=== PATIENT | female | born 1990 | race Caucasian/White ===

== ENCOUNTER 2019-05-15 00:19 | Observation (INO) | END 2019-05-15 02:06 | disposition home or self-care (01) | LOC: 1NENULAB | PROVIDERS: ADMIT Advanced Practice Midwife; ATTEND Advanced Practice Midwife ==

== ENCOUNTER 2019-05-19 19:15 | Inpatient (IN) ==
[2019-05-19 19:59] LABS: Bilirubin,Urine Negative (Negative); Blood,Urine Negative (Negative); Clarity,Urine Cloudy (Clear); Color,Urine Dark Yellow (Yellow); Glucose,Urine (UA) Normal (Normal); Ketones,Urine Negative (Negative); Leukocyte Esterase,Urine Small (Negative); Nitrite,Urine Negative (Negative); Protein,Urine Trace mg/dL (Neg-Trace)
[2019-05-19 20:01] LABS: Bacteria,Urine Moderate per hpf (None-Few); Hyaline Casts,Urine Few per lpf (None-Few); Squamous Epithelial Cell,Urine Many per lpf (None-Few); WBC,Urine 15-30 per hpf (0-3)
[2019-05-19 20:15] LABS: Calcium Oxalate Crystals,Urine Present
[2019-05-19 20:16] LABS: RBC,Urine 0-3 per hpf (0-3)
[2019-05-19 20:24] LABS: Amphetamine Screen,Urine Positive ng/mL (Cutoff=1000); Barbiturate Screen,Urine Negative ng/mL (Cutoff=200); Benzodiazepines Screen,Urine Negative ng/mL (Cutoff=200); Cannabinoid Screen,Urine Positive ng/mL (Cutoff = 50); Cocaine Screen,Urine Negative ng/mL (Cutoff= 300); Opiate Screen,Urine Negative ng/mL (Cutoff=300); Phencyclidine Screen,Urine Negative ng/mL (Cutoff=25)
[2019-05-19] MEDS ORDERED: Albuterol 2.5 MG/3 ML NEBULIZER IH ONE (20:37)
[2019-05-19] MEDS ORDERED: Albuterol 2.5 MG/3 ML NEBULIZER ONE (21:14)
[2019-05-19 21:35] LABS: Basophils % 0.2 %; Eosinophils # 0.2 K/mcL (0.0-0.6); Eosinophils % 1.4 %; Hematocrit 34.3 % (35.3-44.9); Hemoglobin 11.7 g/dL (11.5-15.4); Immature Granulocytes % 0.8 % (0-4); Lymphocytes # 2.5 K/mcL (0.6-4.6); Lymphocytes % 22.6 %; Mean Corpuscular HGB Conc 34.1 g/dL (31.6-35.5); Mean Corpuscular Hemoglobin 28.4 pg (28.0-33.3); Mean Corpuscular Volume 83.3 fL (83.0-100.0); Mean Platelet Volume 10.5 fL (9.4-12.4); Monocytes # 0.6 K/mcL (0.0-1.3); Monocytes % 5.3 %; Neutrophils # 7.6 K/mcL (1.6-8.9); Platelet Count 273 K/mcL (140-400); Red Blood Count 4.12 M/mcL (3.82-4.97); Red Cell Distribution Width 15.1 % (11.5-14.5); Segmented Neutrophils % 69.7 %
[2019-05-19 21:49] LABS: Candida DNA Not Detected (Not Detect); Gardnerella DNA Not Detected (Not Detect); Trichomonas DNA Not Detected (Not Detect)
[2019-05-19 21:53] LABS: Alanine Aminotransferase 17 Units/L (7-52); Albumin 3.3 g/dL (3.5-5.7); Albumin/Globulin Ratio 1.1 (1.1-2.2); Alkaline Phosphatase 111 Units/L (34-104); Aspartate Amino Transferase 17 Units/L (13-39); BUN/Creatinine Ratio 22 (6-26); Bilirubin,Total 0.5 mg/dL (0.3-1.0); Blood Urea Nitrogen 11 mg/dL (6-20); Calcium 8.9 mg/dL (8.6-10.3); Carbon Dioxide 21 mEq/L (23-29); Chloride 105 mEq/L (98-107); Globulin 3.1 g/dL (2.4-3.5); Glucose 83 mg/dL (70-105); Osmolality,Calculated 281 (280-300); Potassium 3.6 mEq/L (3.5-5.1); Sodium 136 mEq/L (136-145); Total Protein 6.4 g/dL (6.4-8.9); eGFR For African Americans > 60 (> 60); eGFR For Non-African Americans > 60 (> 60)
[2019-05-20] MEDS ORDERED: Ringers Solution, Lactated 1,000 ML ONE (06:18)
[2019-05-20] MEDS ORDERED: Famotidine 20 MG/2 ML VIAL IVP PRN (06:22)
[2019-05-20] MEDS ORDERED: Metoclopramide 10 MG/2 ML VIAL IVP PRN ×2 (06:22→13:47)
[2019-05-20] MEDS ORDERED: Naloxone 0.4 MG/ML INJ IVP PRN (06:22)
[2019-05-20] MEDS ORDERED: Ringers Solution, Lactated 1,000 ML IVC SCH (06:30)
[2019-05-20] MEDS ORDERED: Betamethasone Acet/SodPhos 30 MG/5 ML VIAL IM SCH (07:15)
[2019-05-20] MEDS ORDERED: Clindamycin 900 MG/50 ML 900 MG/50 ML IV.SOLN IVPB ONE (09:02)
[2019-05-20] MEDS ORDERED: Oxytocin 20 units/ LR 1000 mL 20 UNIT/1,000 ML BAG IVC ONE (09:15)
[2019-05-20] MEDS ORDERED: *HR* Morphine Sulfate/PF 10 MG/10 ML AMPUL ONE (09:54)
[2019-05-20] MEDS ORDERED: *HR* FentaNYL (PF) 100 MCG/2 ML VIAL ONE (09:54)
[2019-05-20] MEDS ORDERED: Gentamicin 350 MG in 0.9 % Sodium Chloride 100 ML IVPB ONE (10:00)
[2019-05-20] MEDS ORDERED: Acetaminophen IV 1,000 MG/100 ML INFUS..BTL IVPB ONE (10:04)
[2019-05-20] MEDS ORDERED: Dexamethasone 4 MG/ML VIAL ONE (10:25)
[2019-05-20] MEDS ORDERED: Ondansetron 4 MG/2 ML VIAL ONE ×2 (10:25)
[2019-05-20] MEDS ORDERED: *HR* OxyCODONE Immed Rel 5 MG TABLET PO PRN (10:41)
[2019-05-20] MEDS ORDERED: Ondansetron 4 MG/2 ML VIAL IVP ONE (10:41)
[2019-05-20] MEDS ORDERED: *HR* HYDROmorphone (PF) 1 MG/ML SYRINGE IVP PRN (10:41)
[2019-05-20] MEDS ORDERED: Rho Immune Globulin 1,500 UNIT SYRINGE IM ONE (13:47)
[2019-05-20] MEDS ORDERED: Oxytocin 20 units/ LR 1000 mL 20 UNIT/1,000 ML BAG IVC SCH ×2 (13:47)
[2019-05-20] MEDS ORDERED: Ondansetron 4 MG/2 ML VIAL IVP PRN (13:47)
[2019-05-20] MEDS ORDERED: Measles/Mumps/Rubella Vacc 0.5 ML VIAL SQ ONE (13:47)
[2019-05-20] MEDS ORDERED: *HR* LORazepam 2 MG/ML VIAL IVP ONE (15:58)
[2019-05-20] MEDS ORDERED: *HR* LORazepam 2 MG/ML VIAL ONE (16:00)
[2019-05-20] MEDS: Clindamycin 900 MG/50 ML 900 MG/50 ML IV.SOLN IVPB SCH ×2 (16:35→23:35)
[2019-05-20] MEDS: Nicotine 21 MG PATCH.TD24 TD SCH (17:11)
[2019-05-20] MEDS: Acetaminophen 325 MG TABLET PO SCH ×2 (17:39→23:35)
[2019-05-20] MEDS: Gentamicin 100 MG in 0.9 % Sodium Chloride 100 ML IVPB SCH (18:10)
[2019-05-20] MEDS: Simethicone 80 MG TAB.CHEW PO PRN (21:15)
[2019-05-20] MEDS: *HR* OxyCODONE Immed Rel 5 MG TABLET PO PRN (21:15)
[2019-05-21] MEDS: Gentamicin 100 MG in 0.9 % Sodium Chloride 100 ML IVPB SCH ×3 (02:11→17:54)
[2019-05-21] MEDS: *HR* OxyCODONE Immed Rel 5 MG TABLET PO PRN ×4 (03:56→17:57)
[2019-05-21 04:42] LABS: Basophils % 0.2 %; Eosinophils # 0.1 K/mcL (0.0-0.6); Eosinophils % 1.1 %; Hematocrit 33.8 % (35.3-44.9); Immature Granulocytes % 0.8 % (0-4); Lymphocytes # 2.9 K/mcL (0.6-4.6); Lymphocytes % 22.7 %; Mean Corpuscular HGB Conc 32.5 g/dL (31.6-35.5); Mean Corpuscular Hemoglobin 28.2 pg (28.0-33.3); Mean Corpuscular Volume 86.7 fL (83.0-100.0); Mean Platelet Volume 10.4 fL (9.4-12.4); Monocytes # 0.9 K/mcL (0.0-1.3); Monocytes % 6.8 %; Neutrophils # 8.6 K/mcL (1.6-8.9); Platelet Count 245 K/mcL (140-400); Red Cell Distribution Width 15.5 % (11.5-14.5); Segmented Neutrophils % 68.4 %; White Blood Count 12.6 K/mcL (4.3-11.1)
[2019-05-21] MEDS: Acetaminophen 325 MG TABLET PO SCH ×3 (06:40→18:38)
[2019-05-21] MEDS: Nicotine 21 MG PATCH.TD24 TD SCH (08:04)
[2019-05-21] MEDS: Clindamycin 900 MG/50 ML 900 MG/50 ML IV.SOLN IVPB SCH (08:05)
[2019-05-21] MEDS ORDERED: Prenatal Vit/FA 1 EACH TABLET PO SCH (09:00)
[2019-05-21] MEDS: Simethicone 80 MG TAB.CHEW PO PRN (21:41)
[2019-05-21] MEDS: Sulfamethoxazole/Trimeth DS 1 EACH TABLET PO SCH (21:42)
[2019-05-22] MEDS: *HR* OxyCODONE Immed Rel 5 MG TABLET PO PRN ×2 (02:08→09:23)
[2019-05-22] MEDS: Acetaminophen 325 MG TABLET PO SCH ×2 (02:09→09:22)
[2019-05-22] MEDS: Sulfamethoxazole/Trimeth DS 1 EACH TABLET PO SCH (09:23)
[2019-05-22 09:24] VITALS: BP 134/89
== END 2019-05-22 10:55 | disposition home or self-care (01) | DRG 539 ==
LOC: 1NENULAB → 1NENUOBS 05-20 13:43
PROVIDERS: ADMIT Registered Nurse; ATTEND Registered Nurse

== ENCOUNTER 2019-06-02 12:34 | Inpatient (IN) ==
[2019-06-02] MEDS ORDERED: ISOVUE-370 200 ML INFUS..BTL ONE (12:41)
[2019-06-02] MEDS ORDERED: 0.9 % Sodium Chloride 1,000 ML ONE (12:41)
[2019-06-02] MEDS ORDERED: *HR* Heparin 10,000 UNIT/10 ML VIAL ONE (12:41)
[2019-06-02] MEDS ORDERED: Heparin 1,000 UNITS/500 mL 500 ML ONE (12:41)
[2019-06-02] MEDS ORDERED: Nitroglycerin 1,000 MCG/10 ML VIAL IV ONE (12:42)
[2019-06-02] MEDS ORDERED: *HR* Midazolam HCl 2 MG/2 ML VIAL ONE (12:47)
[2019-06-02] MEDS ORDERED: *HR* Bivalirudin 250 MG VIAL IVC ONE (12:47)
[2019-06-02] MEDS ORDERED: *HR* FentaNYL (PF) 100 MCG/2 ML VIAL ONE (12:48)
[2019-06-02] MEDS ORDERED: Tirofiban 12.5 MG/250ML 12.5 MG/250 ML BAG ONE (13:29)
[2019-06-02] MEDS ORDERED: Nitroglycerin 0.4 MG TAB.SUBL SL PRN (14:29)
[2019-06-02] MEDS ORDERED: *HR* Atropine Sulfate 1 MG/10 ML SYRINGE ONE (16:45)
[2019-06-02] MEDS: carvediloL 6.25 MG TABLET PO SCH (17:34)
[2019-06-02 19:07] LABS: Amphetamine Screen,Urine Positive ng/mL (Cutoff=1000); Barbiturate Screen,Urine Negative ng/mL (Cutoff=200); Benzodiazepines Screen,Urine Negative ng/mL (Cutoff=200); Cannabinoid Screen,Urine Positive ng/mL (Cutoff = 50); Cocaine Screen,Urine Negative ng/mL (Cutoff= 300); Opiate Screen,Urine Negative ng/mL (Cutoff=300); Phencyclidine Screen,Urine Negative ng/mL (Cutoff=25)
[2019-06-02 19:56] LABS: BUN/Creatinine Ratio 24 (6-26); Blood Urea Nitrogen 15 mg/dL (6-20); Calcium 9.1 mg/dL (8.6-10.3); Carbon Dioxide 23 mEq/L (23-29); Chloride 105 mEq/L (98-107); Glucose 127 mg/dL (70-105); Magnesium 2.1 mg/dL (1.6-2.6); Osmolality,Calculated 288 (280-300); Potassium 3.8 mEq/L (3.5-5.1); Sodium 138 mEq/L (136-145); eGFR For African Americans > 60 (> 60); eGFR For Non-African Americans > 60 (> 60)
[2019-06-02 20:01] LABS: Troponin I 26.01 ng/mL (< 0.04)
[2019-06-03 08:25] LABS: Basophils % 0.3 %; Eosinophils # 0.1 K/mcL (0.0-0.6); Eosinophils % 1.3 %; Hematocrit 37.4 % (35.3-44.9); Hemoglobin 12.4 g/dL (11.5-15.4); Immature Granulocytes % 0.4 % (0-4); Mean Corpuscular HGB Conc 33.2 g/dL (31.6-35.5); Mean Corpuscular Hemoglobin 27.6 pg (28.0-33.3); Mean Corpuscular Volume 83.3 fL (83.0-100.0); Mean Platelet Volume 9.7 fL (9.4-12.4); Monocytes # 0.6 K/mcL (0.0-1.3); Monocytes % 5.5 %; Neutrophils # 7.6 K/mcL (1.6-8.9); Platelet Count 384 K/mcL (140-400); Red Blood Count 4.49 M/mcL (3.82-4.97); Red Cell Distribution Width 15.4 % (11.5-14.5); Segmented Neutrophils % 73.5 %; White Blood Count 10.4 K/mcL (4.3-11.1)
[2019-06-03 08:28] LABS: INR 1.1; Prothrombin Time 12.3 Seconds (9.4-12.1)
[2019-06-03 08:48] LABS: BUN/Creatinine Ratio 18 (6-26); Blood Urea Nitrogen 12 mg/dL (6-20); Carbon Dioxide 25 mEq/L (23-29); Chloride 104 mEq/L (98-107); Cholesterol 188 mg/dL (< 200); Estimated Average Glucose 111 mg/dl; Glucose 152 mg/dL (70-105); HDL Cholesterol 62 mg/dL (40-59); LDL Cholesterol,Calculated 100 mg/dL (0-99); Osmolality,Calculated 291 (280-300); Potassium 3.4 mEq/L (3.5-5.1); Sodium 139 mEq/L (136-145); Triglycerides 129 mg/dL (< 150); Troponin I 50.52 ng/mL (< 0.04); eGFR For African Americans > 60 (> 60); eGFR For Non-African Americans > 60 (> 60)
[2019-06-03] MEDS ORDERED: Perflutren Lipid Microsphere 1.3 ML in 0.9 % Sodium Chloride 8.7 ML IVP ONE (09:13)
[2019-06-03] MEDS: carvediloL 6.25 MG TABLET PO SCH ×2 (09:25→18:06)
[2019-06-03] MEDS: Nicotine 14 MG PATCH.TD24 TD SCH (09:27)
[2019-06-03] MEDS: *HR* Heparin 5,000 UNIT/ML VIAL SQ SCH (18:06)
[2019-06-04] MEDS: *HR* Heparin 5,000 UNIT/ML VIAL SQ SCH (05:04)
[2019-06-04] MEDS: Nicotine 14 MG PATCH.TD24 TD SCH (09:04)
[2019-06-04] MEDS: carvediloL 6.25 MG TABLET PO SCH (09:04)
[2019-06-04 11:21] LABS: Basophils % 0.5 %; Eosinophils # 0.1 K/mcL (0.0-0.6); Eosinophils % 1.3 %; Hematocrit 35.3 % (35.3-44.9); Hemoglobin 11.5 g/dL (11.5-15.4); Immature Granulocytes % 0.8 % (0-4); Lymphocytes # 2.4 K/mcL (0.6-4.6); Lymphocytes % 30.4 %; Mean Corpuscular HGB Conc 32.6 g/dL (31.6-35.5); Mean Corpuscular Hemoglobin 27.5 pg (28.0-33.3); Mean Corpuscular Volume 84.4 fL (83.0-100.0); Mean Platelet Volume 9.9 fL (9.4-12.4); Monocytes # 0.6 K/mcL (0.0-1.3); Monocytes % 7.1 %; Neutrophils # 4.7 K/mcL (1.6-8.9); Platelet Count 309 K/mcL (140-400); Red Blood Count 4.18 M/mcL (3.82-4.97); Red Cell Distribution Width 15.5 % (11.5-14.5); Segmented Neutrophils % 59.9 %; White Blood Count 7.8 K/mcL (4.3-11.1)
[2019-06-04 11:33] LABS: BUN/Creatinine Ratio 12 (6-26); Blood Urea Nitrogen 8 mg/dL (6-20); Calcium 8.7 mg/dL (8.6-10.3); Carbon Dioxide 25 mEq/L (23-29); Chloride 106 mEq/L (98-107); Glucose 99 mg/dL (70-105); Magnesium 1.8 mg/dL (1.6-2.6); Osmolality,Calculated 288 (280-300); Potassium 4.1 mEq/L (3.5-5.1); Sodium 140 mEq/L (136-145); eGFR For African Americans > 60 (> 60); eGFR For Non-African Americans > 60 (> 60)
[2019-06-04 16:40] VITALS: BP 103/67
== END 2019-06-04 17:25 | disposition home or self-care (01) | DRG 174 ==
LOC: ICNU 14:20
PROVIDERS: ADMIT Internal Medicine Interventional Cardiology; ATTEND Internal Medicine Interventional Cardiology

== ENCOUNTER 2019-06-15 23:13 | Inpatient (IN) ==
[2019-06-15] MEDS ORDERED: *HR* Ticagrelor 90 MG TABLET PO ONE (23:25)
[2019-06-15] MEDS ORDERED: *HR* Heparin 5,000 UNIT/ML VIAL IVP ONE (23:25)
[2019-06-15] MEDS ORDERED: *HR* Ticagrelor 90 MG TABLET ONE (23:27)
[2019-06-15] MEDS ORDERED: *HR* Heparin 5,000 UNIT/ML VIAL ONE (23:27)
[2019-06-15] MEDS ORDERED: 0.9 % Sodium Chloride 1,000 ML ONE (23:28)
[2019-06-15] MEDS ORDERED: 0.9 % Sodium Chloride 1,000 ML IVC ONE (23:30)
[2019-06-15] MEDS ORDERED: Heparin 1,000 UNITS/500 mL 500 ML ONE (23:35)
[2019-06-15] MEDS ORDERED: Nitroglycerin 1,000 MCG/10 ML VIAL IV ONE (23:35)
[2019-06-15] MEDS ORDERED: 0.9 % Sodium Chloride 2,000 ML ONE (23:35)
[2019-06-15] MEDS ORDERED: *HR* Heparin 10,000 UNIT/10 ML VIAL ONE (23:35)
[2019-06-15] MEDS ORDERED: ISOVUE-370 200 ML INFUS..BTL ONE (23:35)
[2019-06-15 23:48] LABS: Basophils % 0.3 %; Eosinophils # 0.2 K/mcL (0.0-0.6); Eosinophils % 1.5 %; Hematocrit 35.3 % (35.3-44.9); Hemoglobin 11.7 g/dL (11.5-15.4); Immature Granulocytes % 0.3 % (0-4); Lymphocytes # 2.3 K/mcL (0.6-4.6); Mean Corpuscular HGB Conc 33.1 g/dL (31.6-35.5); Mean Corpuscular Hemoglobin 27.8 pg (28.0-33.3); Mean Corpuscular Volume 83.8 fL (83.0-100.0); Mean Platelet Volume 9.5 fL (9.4-12.4); Monocytes # 0.6 K/mcL (0.0-1.3); Monocytes % 6.1 %; Platelet Count 357 K/mcL (140-400); Red Blood Count 4.21 M/mcL (3.82-4.97); Red Cell Distribution Width 15.6 % (11.5-14.5); Segmented Neutrophils % 68.8 %; White Blood Count 10.2 K/mcL (4.3-11.1)
[2019-06-15] MEDS ORDERED: Verapamil 5 MG/2 ML VIAL ONE (23:51)
[2019-06-15 23:52] LABS: INR 1.1; Prothrombin Time 12.8 Seconds (9.4-12.1)
[2019-06-16] MEDS ORDERED: *HR* FentaNYL (PF) 100 MCG/2 ML VIAL ONE (00:05)
[2019-06-16] MEDS ORDERED: *HR* Midazolam HCl 2 MG/2 ML VIAL ONE (00:05)
[2019-06-16 00:09] LABS: BUN/Creatinine Ratio 23 (6-26); Blood Urea Nitrogen 18 mg/dL (6-20); Carbon Dioxide 19 mEq/L (23-29); Chloride 106 mEq/L (98-107); Glucose 131 mg/dL (70-105); Magnesium 2.1 mg/dL (1.6-2.6); Osmolality,Calculated 290 (280-300); Potassium 3.6 mEq/L (3.5-5.1); Sodium 138 mEq/L (136-145); eGFR For African Americans > 60 (> 60); eGFR For Non-African Americans > 60 (> 60)
[2019-06-16 00:11] LABS: Activated Partial Thrombo Time > 360.0 Seconds (26.0-36.0)
[2019-06-16] MEDS ORDERED: *HR* Heparin 10,000 UNIT/10 ML VIAL ONE (00:13)
[2019-06-16 00:14] LABS: Troponin I 0.17 ng/mL (< 0.04)
[2019-06-16] MEDS ORDERED: Tirofiban 12.5 MG/250ML 12.5 MG/250 ML BAG ONE (00:21)
[2019-06-16] MEDS ORDERED: Ondansetron 4 MG/2 ML VIAL IVP PRN (01:09)
[2019-06-16] MEDS ORDERED: Tirofiban 12.5 MG/250ML 12.5 MG/250 ML BAG IVC SCH (01:15)
[2019-06-16] MEDS: 0.9 % Sodium Chloride 1,000 ML IVC SCH ×3 (02:11→20:30)
[2019-06-16 03:14] LABS: Basophils % 0.3 %; Eosinophils % 0.4 %; Hematocrit 33.4 % (35.3-44.9); Hemoglobin 10.6 g/dL (11.5-15.4); Immature Granulocytes % 0.3 % (0-4); Lymphocytes % 9.5 %; Mean Corpuscular HGB Conc 31.7 g/dL (31.6-35.5); Mean Corpuscular Volume 88.1 fL (83.0-100.0); Mean Platelet Volume 9.8 fL (9.4-12.4); Monocytes # 0.3 K/mcL (0.0-1.3); Monocytes % 2.7 %; Neutrophils # 9.3 K/mcL (1.6-8.9); Platelet Count 296 K/mcL (140-400); Red Blood Count 3.79 M/mcL (3.82-4.97); Red Cell Distribution Width 15.6 % (11.5-14.5); Segmented Neutrophils % 86.8 %; White Blood Count 10.7 K/mcL (4.3-11.1)
[2019-06-16 03:33] LABS: BUN/Creatinine Ratio 24 (6-26); Blood Urea Nitrogen 15 mg/dL (6-20); Calcium 8.3 mg/dL (8.6-10.3); Carbon Dioxide 20 mEq/L (23-29); Chloride 108 mEq/L (98-107); Glucose 119 mg/dL (70-105); Osmolality,Calculated 288 (280-300); Potassium 3.7 mEq/L (3.5-5.1); Sodium 138 mEq/L (136-145); eGFR For African Americans > 60 (> 60); eGFR For Non-African Americans > 60 (> 60)
[2019-06-16] MEDS ORDERED: *HR* Ticagrelor 90 MG TABLET PO ONE ×2 (05:30→10:44)
[2019-06-16 07:44] LABS: Hematocrit 32.8 % (35.3-44.9); Hemoglobin 10.4 g/dL (11.5-15.4)
[2019-06-16 07:58] LABS: % Iron Saturation 12 % (15-50); Iron 37 mcg/dL (50-170); Transferrin 214 mg/dL (203-362)
[2019-06-16 08:06] LABS: BUN/Creatinine Ratio 22 (6-26); Blood Urea Nitrogen 12 mg/dL (6-20); Troponin I 53.41 ng/mL (< 0.04); eGFR For African Americans > 60 (> 60); eGFR For Non-African Americans > 60 (> 60)
[2019-06-16] MEDS ORDERED: *HR* Ticagrelor 90 MG TABLET PO SCH (09:00)
[2019-06-16] MEDS ORDERED: Perflutren Lipid Microsphere 1.3 ML in 0.9 % Sodium Chloride 8.7 ML IVP ONE (10:56)
[2019-06-16 16:00] LABS: Bilirubin,Urine Negative (Negative); Blood,Urine Moderate (Negative); Clarity,Urine Clear (Clear); Color,Urine Yellow (Yellow); Glucose,Urine (UA) Normal (Normal); Ketones,Urine Trace mg/dL (Negative); Leukocyte Esterase,Urine Negative (Negative); Nitrite,Urine Negative (Negative); Protein,Urine Negative (Neg-Trace); Specific Gravity,Urine > 1.030 (1.010-1.025); Urobilinogen,Urine Normal (Normal)
[2019-06-16 16:06] LABS: Hyaline Casts,Urine None Seen per lpf (None-Few); RBC,Urine 0-3 per hpf (0-3); Squamous Epithelial Cell,Urine Many per lpf (None-Few)
[2019-06-16 16:24] LABS: Bacteria,Urine Few per hpf (None-Few)
[2019-06-16] MEDS: *HR* Ticagrelor 90 MG TABLET PO SCH (20:29)
[2019-06-17 04:39] LABS: Hematocrit 34.3 % (35.3-44.9); Hemoglobin 10.9 g/dL (11.5-15.4); Mean Corpuscular HGB Conc 31.8 g/dL (31.6-35.5); Mean Corpuscular Volume 88.2 fL (83.0-100.0); Mean Platelet Volume 9.8 fL (9.4-12.4); Platelet Count 299 K/mcL (140-400); Red Blood Count 3.89 M/mcL (3.82-4.97); Red Cell Distribution Width 16.1 % (11.5-14.5); White Blood Count 7.8 K/mcL (4.3-11.1)
[2019-06-17 04:53] LABS: BUN/Creatinine Ratio 10 (6-26); Blood Urea Nitrogen 7 mg/dL (6-20); Calcium 8.2 mg/dL (8.6-10.3); Carbon Dioxide 22 mEq/L (23-29); Chloride 109 mEq/L (98-107); Glucose 96 mg/dL (70-105); Osmolality,Calculated 288 (280-300); Potassium 3.6 mEq/L (3.5-5.1); Sodium 140 mEq/L (136-145); eGFR For African Americans > 60 (> 60); eGFR For Non-African Americans > 60 (> 60)
[2019-06-17] MEDS: 0.9 % Sodium Chloride 1,000 ML IVC SCH (06:46)
[2019-06-17] MEDS: *HR* Ticagrelor 90 MG TABLET PO SCH (07:48)
[2019-06-17 07:54] VITALS: BP 128/86
[2019-06-17 08:13] LABS: Estimated Average Glucose 111 mg/dl
[2019-06-17] MEDS ORDERED: D5% in Water 1,000 ML IVC SCH (08:15)
== END 2019-06-17 12:13 | disposition left against medical advice (07) | DRG 175 ==
LOC: ICNU 23:13 → EMEROOARM 23:13 → ICNU 06-16
PROVIDERS: ADMIT Internal Medicine; ATTEND Student in an Organized Health Care Education/Training Program

== ENCOUNTER 2019-09-10 18:48 | Inpatient (IN) ==
[2019-09-10] MEDS ORDERED: Ondansetron 4 MG/2 ML VIAL IVP PRN (21:27)
[2019-09-10] MEDS ORDERED: Naloxone 0.4 MG/ML INJ IVP PRN (21:27)
[2019-09-10] MEDS ORDERED: Acetaminophen 325 MG TABLET PO PRN (21:27)
[2019-09-10] MEDS ORDERED: Ipratropium/Albuterol Neb 3 ML IH PRN (21:33)
[2019-09-10] MEDS ORDERED: *HR* Heparin 5,000 UNIT/ML VIAL IVP ONE (21:56)
[2019-09-10] MEDS ORDERED: *HR* Heparin 5,000 UNIT/ML VIAL IVP PRN ×2 (21:56)
[2019-09-10 23:34] LABS: Heparin anti-factor XA UFH < 0.04 IU/mL (0.30-0.70)
[2019-09-10 23:35] LABS: Prothrombin Time 11.1 Seconds (9.4-12.1)
[2019-09-11] MEDS: Heparin 25,000 UNIT/250 ML D5W 25,000 UNIT/250 ML IV.SOLN IVC SCH ×2 (00:49→23:14)
[2019-09-11] MEDS: 0.9 % Sodium Chloride 1,000 ML IVC SCH ×2 (00:49→07:57)
[2019-09-11] MEDS ORDERED: Aspirin 81 MG TAB.CHEW PO SCH (09:00)
[2019-09-11] MEDS: lisinopriL 5 MG TABLET PO SCH (12:03)
[2019-09-11] MEDS: carvediloL 6.25 MG TABLET PO SCH ×2 (16:45→17:26)
[2019-09-11] MEDS ORDERED: *HR* LORazepam 2 MG/ML VIAL IVP PRN (17:19)
[2019-09-11] MEDS ORDERED: *HR* LORazepam 2 MG/ML VIAL IM PRN (17:52)
[2019-09-11] MEDS ORDERED: Melatonin 3 MG TABLET PO ONE (21:15)
[2019-09-11] MEDS: lamoTRIgine 25 MG TABLET PO SCH (23:10)
[2019-09-12] MEDS: lamoTRIgine 25 MG TABLET PO SCH ×2 (08:33→21:43)
[2019-09-12] MEDS: carvediloL 6.25 MG TABLET PO SCH ×2 (08:33→18:43)
[2019-09-12] MEDS: lisinopriL 5 MG TABLET PO SCH (08:33)
[2019-09-12] MEDS ORDERED: QUEtiapine Fumarate 100 MG TABLET PO SCH (21:00)
[2019-09-12] MEDS: Heparin 25,000 UNIT/250 ML D5W 25,000 UNIT/250 ML IV.SOLN IVC SCH (22:59)
[2019-09-13 07:53] VITALS: BP 121/71
[2019-09-13] MEDS: lisinopriL 5 MG TABLET PO SCH (08:20)
[2019-09-13] MEDS: carvediloL 6.25 MG TABLET PO SCH (08:20)
[2019-09-13] MEDS: lamoTRIgine 25 MG TABLET PO SCH (08:20)
== END 2019-09-13 15:33 | disposition left against medical advice (07) | DRG 190 ==
LOC: 2NENU → SUATTDRO 09-12 14:35 → 3BNU 09-12 21:24
PROVIDERS: ADMIT Internal Medicine; ATTEND Internal Medicine

== ENCOUNTER 2020-11-26 16:41 | Inpatient (IN) ==
[2020-11-26 17:32] LABS: Bacteria,Urine Few per hpf (None-Few); Bilirubin,Urine Negative (Negative); Blood,Urine Small (Negative); Clarity,Urine Turbid (Clear); Color,Urine Yellow (Yellow); Glucose,Urine (UA) Normal (Normal); Ketones,Urine Negative (Negative); Leukocyte Esterase,Urine Large (Negative); Mucus,Urine Many per lpf (None-Few); Nitrite,Urine Positive (Negative); PH,Urine 5.5 pH Units (5.0-8.0); Protein,Urine Trace mg/dL (Neg-Trace); Specific Gravity,Urine 1.025 (1.010-1.025); Squamous Epithelial Cell,Urine Few per hpf (None-Few); WBC,Urine TNTC per hpf (0-3)
[2020-11-26 17:34] LABS: Basophils # 0.1 K/mcL (0.0-0.2); Basophils % 0.4 %; Eosinophils # 0.2 K/mcL (0.0-0.6); Eosinophils % 1.5 %; Hematocrit 41.1 % (35.3-44.9); Hemoglobin 13.1 g/dL (11.5-15.4); Immature Granulocytes % 0.4 % (0-4); Lymphocytes # 1.8 K/mcL (0.6-4.6); Lymphocytes % 14.5 %; Mean Corpuscular HGB Conc 31.9 g/dL (31.6-35.5); Mean Corpuscular Hemoglobin 28.1 pg (28.0-33.3); Monocytes # 0.6 K/mcL (0.0-1.3); Neutrophils # 9.7 K/mcL (1.6-8.9); Platelet Count 264 K/mcL (140-400); Red Blood Count 4.67 M/mcL (3.82-4.97); Red Cell Distribution Width 14.6 % (11.5-14.5); Segmented Neutrophils % 78.2 %; White Blood Count 12.4 K/mcL (4.3-11.1)
[2020-11-26 18:02] LABS: Acetaminophen < 10 mcg/mL (10-20); BUN/Creatinine Ratio 17 (6-26); Blood Urea Nitrogen 12 mg/dL (6-20); Calcium 9.4 mg/dL (8.6-10.3); Carbon Dioxide 27 mEq/L (23-29); Chloride 108 mEq/L (98-107); Chol/HDL Ratio 2.8 (0-4.9); Cholesterol 130 mg/dL (< 200); Ethanol < 10 mg/dL (Less than 10); Glucose 94 mg/dL (70-105); HDL Cholesterol 46 mg/dL (40-59); LDL Cholesterol,Calculated 61 mg/dL (< 100); Osmolality,Calculated 298 (280-300); Potassium 4.3 mEq/L (3.5-5.1); Salicylate < 2.5 mg/dL (15.0-30.0); Sodium 144 mEq/L (136-145); Triglycerides 117 mg/dL (< 150); eGFR For African Americans > 60 (> 60); eGFR For Non-African Americans > 60 (> 60)
[2020-11-26 18:08] LABS: Amphetamine Screen,Urine Positive ng/mL (Cutoff=1000); Barbiturate Screen,Urine Negative ng/mL (Cutoff=200); Benzodiazepines Screen,Urine Negative ng/mL (Cutoff=200); Cannabinoid Screen,Urine Positive ng/mL (Cutoff = 50); Cocaine Screen,Urine Negative ng/mL (Cutoff= 300); Opiate Screen,Urine Negative ng/mL (Cutoff=300); Phencyclidine Screen,Urine Negative ng/mL (Cutoff=25)
[2020-11-26] MEDS ORDERED: Nitrofurantoin (BID) 100 MG CAPSULE PO STA (18:36)
[2020-11-26 18:49] LABS: Estimated Average Glucose 120 mg/dl; Hemoglobin A1C 5.8 %
[2020-11-26] MEDS ORDERED: Haloperidol Lactate 5 MG/ML VIAL IM ONE (19:34)
[2020-11-26 19:46] LABS: Adenovirus Not Detected (Not Detect); Bordetella Pertussis Not Detected (Not Detect); Chlamydophila pneumoniae Not Detected (Not Detect); Coronavirus 229E Not Detected (Not Detect); Coronavirus HKU1 Not Detected (Not Detect); Coronavirus NL63 Not Detected (Not Detect); Coronavirus OC43 Not Detected (Not Detect); Human Metapneumovirus Not Detected (Not Detect); Human Rhinovirus/Enterovirus Not Detected (Not Detect); Influenza A Subtype 2009 H1 Not Detected (Not Detect); Influenza B Not Detected (Not Detect); Mycoplasma pneumoniae Not Detected (Not Detect); Parainfluenza Virus 1 Not Detected (Not Detect); Parainfluenza Virus 2 Not Detected (Not Detect); Parainfluenza Virus 3 Not Detected (Not Detect); Parainfluenza Virus 4 Not Detected (Not Detect); Respiratory Syncytial Virus Not Detected (Not Detect); SARS-CoV-2 Not Detected (Not Detect)
[2020-11-27] MEDS ORDERED: *HR* LORazepam 2 MG/ML VIAL IM PRN (04:50)
[2020-11-27] MEDS ORDERED: traZODone 50 MG TABLET PO PRN (04:50)
[2020-11-27] MEDS ORDERED: Acetaminophen 325 MG TABLET PO PRN (04:50)
[2020-11-27] MEDS ORDERED: hydrOXYzine pamoate 25 MG CAPSULE PO PRN (04:50)
[2020-11-27] MEDS ORDERED: *HR* LORazepam 1 MG TABLET PO PRN (04:50)
[2020-11-27] MEDS ORDERED: Haloperidol Lactate 5 MG/ML VIAL IM PRN (04:50)
[2020-11-27] MEDS ORDERED: haloperidoL 5 MG TABLET PO PRN (04:50)
[2020-11-27] MEDS ORDERED: Mag Hydrox/Al Hydrox/Simeth 30 ML UDC PO PRN (16:34)
[2020-11-27] MEDS ORDERED: MOM Conc 10 ML UD.LIQ PO PRN (16:34)
[2020-11-27] MEDS: carvediloL 6.25 MG TABLET PO SCH (18:01)
[2020-11-27] MEDS: Nitrofurantoin (BID) 100 MG CAPSULE PO SCH (18:01)
[2020-11-27] MEDS: QUEtiapine Fumarate 100 MG TABLET PO SCH (20:13)
[2020-11-28] MEDS: Nitrofurantoin (BID) 100 MG CAPSULE PO SCH ×2 (13:37→16:52)
[2020-11-28] MEDS: carvediloL 6.25 MG TABLET PO SCH ×2 (13:37→16:52)
[2020-11-28] MEDS: QUEtiapine Fumarate 100 MG TABLET PO SCH ×2 (13:37→22:06)
[2020-11-28] MEDS: lisinopriL 5 MG TABLET PO SCH (13:38)
[2020-11-29] MEDS: QUEtiapine Fumarate 100 MG TABLET PO SCH ×2 (09:14→21:24)
[2020-11-29] MEDS: carvediloL 6.25 MG TABLET PO SCH ×2 (09:15→17:10)
[2020-11-29] MEDS: lisinopriL 5 MG TABLET PO SCH (09:15)
[2020-11-29] MEDS: Nitrofurantoin (BID) 100 MG CAPSULE PO SCH ×2 (09:15→17:10)
[2020-11-29] MEDS: Venlafaxine XR (24 HR) 75 MG CAP.ER.24H PO SCH (11:26)
[2020-11-30] MEDS: Venlafaxine XR (24 HR) 75 MG CAP.ER.24H PO SCH (09:23)
[2020-11-30] MEDS: QUEtiapine Fumarate 100 MG TABLET PO SCH ×2 (09:24→21:25)
[2020-11-30] MEDS: Nitrofurantoin (BID) 100 MG CAPSULE PO SCH ×2 (09:24→17:28)
[2020-11-30] MEDS: lisinopriL 5 MG TABLET PO SCH (09:25)
[2020-11-30] MEDS: carvediloL 6.25 MG TABLET PO SCH ×2 (09:25→17:28)
[2020-12-01] MEDS: Venlafaxine XR (24 HR) 75 MG CAP.ER.24H PO SCH (09:00)
[2020-12-01] MEDS: QUEtiapine Fumarate 100 MG TABLET PO SCH (09:00)
[2020-12-01 10:04] VITALS: BP 110/73
[2020-12-01] MEDS: Nitrofurantoin (BID) 100 MG CAPSULE PO SCH (11:31)
[2020-12-01] MEDS: carvediloL 6.25 MG TABLET PO SCH (11:31)
[2020-12-01] MEDS: lisinopriL 5 MG TABLET PO SCH (11:32)
[2020-12-01] MEDS ORDERED: QUEtiapine Fumarate 100 MG TABLET PO SCH (15:00)
== END 2020-12-01 14:55 | disposition home or self-care (01) | DRG 753 ==
LOC: EMEROOARM 16:41 → 1ANU 11-27 04:50
PROVIDERS: ADMIT Psychiatry & Neurology Psychiatry; ATTEND Psychiatry & Neurology Psychiatry